=== PATIENT | female | born 1955 | race Caucasian/White ===

== ENCOUNTER 2024-09-06 19:17 | Emergency (ER) | payer OTHER, MEDICARE, SELFPAY ==
[2024-09-06 19:20] VITALS: BP 174/88
[2024-09-06 19:45] LABS: % Basophils 0.6 % (0-2); % Eosinophils 3.7 % (0-6); % Immature Granulocytes 0.8 % (0-0.5); % Lymphocytes 14.5 % (20.5-51.1); % Monocytes 8.1 % (1.7-9.3); % Neutrophils 72.3 % (42.2-75.2); Absolute Basophils 0.1 10^3/uL (0-0.2); Absolute Eosinophils 0.4 10^3/uL (0-0.7); Absolute Immature Granulocytes 0.1 10^3/uL (0-0.05); Absolute Lymphocytes 1.5 10^3/uL (1.2-3.4); Absolute Monocytes 0.9 10^3/uL (0.1-0.6); Absolute Neutrophils 7.6 10^3/uL (1.4-6.5); Hematocrit 40.3 % (37.0-47.0); Hemoglobin 13.3 g/dL (12.0-16.0); Mean Corpuscular Volume 81.7 fL (81.0-99.0); Mean Platelet Volume 10.5 fL (7.4-10.4); Nucleated Red Blood Cells % 0 %; Platelet Count 220 10^3/uL (130-400); Red Blood Cell Count 4.93 10^6/uL (4.20-5.40); Red Cell Dist. Width 13.8 % (11.5-14.5); White Blood Cell Count 10.5 10^3/uL (4.8-10.8)
[2024-09-06 20:06] LABS: Troponin I < 0.012 ng/ml
[2024-09-06 20:09] LABS: ALT (SGPT) 20 U/L (0-35); AST (SGOT) 20 U/L (14-36); Albumin 4.4 g/dl (3.5-5.0); Alkaline Phosphatase 132 U/L (38-126); Blood Urea Nitrogen 23 mg/dl (7-17); Calcium 9.7 mg/dl (8.4-10.2); Carbon Dioxide 25 mmol/L (22-30); Chloride 100 mmol/L (98-107); Glucose 115 mg/dl (70-99); Potassium 4.2 mmol/L (3.5-5.1); Sodium 136 mmol/L (135-145); Total Bilirubin 0.8 mg/dl (0.2-1.3); Total Protein 6.9 g/dl (6.3-8.2); eGFR > 60.00
--- NOTE | 2024-09-06 20:19 | ED.GENMED ---
History of Present Illness
<Aubree Parra PA-C - Last Filed: 09/07/24 11:01>
General
Chief Complaint: Chest Pain
Source: patient
Exam Limitations: none
Time Seen by Provider: 09/06/24 20:17
Nursing documentation reviewed up to this point in time: agreed with
History of Present Illness
History of Present Illness:
This is a 68-year-old female with a past medical history of hypertension who presents emergency department today with concerns of chest pain starting around 30 minutes prior to arrival to emergency department. Patient states that she felt it in the
right side of her chest and states that she was just sitting on the couch when this started. Patient states that she has had pain similar in the past that did subside on its own. She also reports that she started to get associated right sided jaw
pain and right sided headache associated with this as well. The chest pain is since resolved but patient does note dull ache in her right jaw. She denies any visual changes, any eye pain. Patient also has associated nausea during this episode.
It lasted around 45 minutes and has since subsided. She denies shortness of breath. She had no history of cardiac disease. However she does state that she has a history of early cardiac disease in her father who at 58 due to heart disease.
She has no associated dizziness or lightheadedness. She does not use tobacco products or drink alcohol. She has not had any syncopal episodes. Currently she feels well but states that the pain will come and go. Does not currently have a
audiology director.
Review of Systems
<Aubree Parra PA-C - Last Filed: 09/07/24 11:01>
Review of Systems
All Other Systems: ROS reviewed and negative except as documented in HPI and ROS
Phy Exam
<Aubree Parra PA-C - Last Filed: 09/07/24 11:01>
Physical Exam
Physical Exam:
General: Patient is well appearing and in no acute distress; non-toxic
Skin: Warm and dry, no rashes or lesions
Head: Normocephalic, atraumatic. No right sided temporal artery tenderness. TMJ joints intact bilaterally.
Eyes: Sclera non-icteric. EOMs intact.
Cardiac: Regular rate and rhythm, no murmurs. No tenderness to palpation of the external chest wall.
Peripheral Vascular: No lower extremity swelling or edema
Pulm: Normal respiratory effort, no wheezes, rales, or rhonchi
Abdomen: No abdominal tenderness to palpation
Neuro: CN II-XII intact, no focal neurologic deficits.
Psychiatric: Appropriate mood and affect.
Scores
<ELDER Elias Filed: 09/07/24 11:01>
Heart Score for Chest Pain Patients
STEMI patient?: No
History: Slightly or Non-Suspicious
ECG: Normal
Age: >/= 65 years
Risk Factors: 1 or 2 Risk Factors
Troponin: </= Normal Limit
Heart Score for Chest Pain Patients: 3
Heart Score Risk: 2.5% MACE over next 6 weeks
Course
<ELDER Elias Filed: 09/07/24 11:01>
Orders/Labs/Results
Orders:
Orders
09/06/24 19:18
Electrocardiogram (*1) Urgent
Reason for Study: Chest Pain
EKG- Treatment ONCE
09/06/24 19:28
CMP [Comprehensive Metabolic Panel] Urgent
Complete Blood Count/With Diff Urgent
Troponin I Urgent
09/06/24 20:51
CR Chest - 2 Views Urgent
Comment:
Reason For Exam: right sided CP
09/06/24 20:54
CRP [C-Reactive Protein] Urgent
ESR [Erythrocyte Sed Rate] Urgent
09/06/24 22:20
Electrocardiogram (*1) Urgent
Reason for Study: Chest Pain
09/06/24 22:32
Troponin I Urgent
Abnormal Lab Results
09/06/24 09/06/24
19:28 20:54
MPV 10.5 H fL
(7.4-10.4)
Abs Immat Gran (auto) 0.1 H 10^3/uL
(0-0.05)
Absolute Neuts (auto) 7.6 H 10^3/uL
(1.4-6.5)
Absolute Monos (auto) 0.9 H 10^3/uL
(0.1-0.6)
Immature Gran % 0.8 H %
(0-0.5)
Lymphocytes % 14.5 L %
(20.5-51.1)
BUN 23 H mg/dl
(7-17)
Glucose 115 H mg/dl
(70-99)
Alkaline Phosphatase 132 H U/L
(38-126)
C-Reactive Protein 19.90 H mg/L
(0.0-10.00)
09/06/24 19:28
09/06/24 19:28
Vital Signs
Initial and Last Documented VS:
Initial Vital Signs
Temp Pulse Resp BP Pulse Ox
98.6 F 97 18 174/88 98
09/06/24 19:20 09/06/24 19:20 09/06/24 19:20 09/06/24 19:20 09/06/24 19:20
Last Documented Vital Signs
Temp Pulse Resp BP Pulse Ox
98.6 F 89 21 164/94 92
09/06/24 19:20 09/06/24 23:30 09/06/24 23:30 09/06/24 23:00 09/06/24 23:30
<Mahin Evans MD - Last Filed: 09/06/24 23:38>
Orders/Labs/Results
Orders:
Orders
09/06/24 19:18
Electrocardiogram (*1) Urgent
Reason for Study: Chest Pain
EKG- Treatment ONCE
09/06/24 19:28
CMP [Comprehensive Metabolic Panel] Urgent
Complete Blood Count/With Diff Urgent
Troponin I Urgent
09/06/24 20:51
CR Chest - 2 Views Urgent
Comment:
Reason For Exam: right sided CP
09/06/24 20:54
CRP [C-Reactive Protein] Urgent
ESR [Erythrocyte Sed Rate] Urgent
09/06/24 22:20
Electrocardiogram (*1) Urgent
Reason for Study: Chest Pain
09/06/24 22:32
Troponin I Urgent
Abnormal Lab Results
09/06/24 09/06/24
19:28 20:54
MPV 10.5 H fL
(7.4-10.4)
Abs Immat Gran (auto) 0.1 H 10^3/uL
(0-0.05)
Absolute Neuts (auto) 7.6 H 10^3/uL
(1.4-6.5)
Absolute Monos (auto) 0.9 H 10^3/uL
(0.1-0.6)
Immature Gran % 0.8 H %
(0-0.5)
Lymphocytes % 14.5 L %
(20.5-51.1)
BUN 23 H mg/dl
(7-17)
Glucose 115 H mg/dl
(70-99)
Alkaline Phosphatase 132 H U/L
(38-126)
C-Reactive Protein 19.90 H mg/L
(0.0-10.00)
09/06/24 19:28
09/06/24 19:28
Vital Signs
Initial and Last Documented VS:
Initial Vital Signs
Temp Pulse Resp BP Pulse Ox
98.6 F 97 18 174/88 98
09/06/24 19:20 09/06/24 19:20 09/06/24 19:20 09/06/24 19:20 09/06/24 19:20
Last Documented Vital Signs
Temp Pulse Resp BP Pulse Ox
98.6 F 89 21 164/94 92
09/06/24 19:20 09/06/24 23:30 09/06/24 23:30 09/06/24 23:00 09/06/24 23:30
<Aubree Parra PA-C - Last Filed: 09/07/24 11:01>
MDM/Problems Addressed
Differential Diagnosis Includes:
Differentials include ACS, costochondritis, pneumothorax, pneumonia, GERD, GCA, tension headache
MDM/Problems Addressed:
68-year-old female with past medical history of hypertension presents emergency department today with concerns of right-sided chest pain. This lasted around 45 minutes and was associated with nausea and right upper arm pain as well as a sensation
of feeling flushed. She has no personal history of cardiac disease, does not currently have a audiology director. She also had transient right-sided temporal headache. She no longer has chest pain but does have right-sided jaw pain. She states that the
pain is not worse with eating. On physical exam she is well-appearing in no acute distress heart is regular rate and rhythm she has no reproducible type chest pain she has no temporal artery tenderness no jaw tenderness to palpation TMJ joints
intact bilaterally. Initial EKG shows normal sinus rhythm with rate of 96 with no ischemic changes repeat EKG shows normal sinus rhythm with rate of 84 largely unchanged from prior. Initial troponin undetectable awaiting repeat troponin.
CRP 19.90 with ESR 11, in light of no active visual changes, no current headache, jaw pain without jaw claudication doubtful of GCA.
Chronic conditions affecting care:
HTN
<Aubree Parra PA-C - Last Filed: 09/07/24 11:01>
*Pulse Oximetry
Patient hypoxic: no
*Critical Care Note
Total Time (30-74mins, 75-104mins- exclusive of procedures): Not Applicable
Data Reviewed
Review of Other/Old Records Reveals: Records (Reviewed ER physician documentation from 11/25 patient seen for head injury following a fall had negative CT head and cervical spine imaging) and Discharge Summary (no discharge summaries to review)
Source: patient and records
<Aubree Parra PA-C - Last Filed: 09/07/24 11:01>
Patient Management
Social determinants of health affecting care: Strong social support
<Aubree Parra PA-C - Last Filed: 09/07/24 11:01>
Update Note
Update Note:
11:10 pm-- case signed out to Hayley Carrillo DIRECTOR GIFT to follow up on repeat troponin
ED Attending Note
<Aubree Parra PA-C - Last Filed: 09/07/24 11:01>
-
Portions of this chart may have been created with voice recognition software.� Occasional wrong word or��sound alike� substitutions may have occurred due to the inherent limitations of voice recognition software.
<Mahin Evans MD - Last Filed: 09/06/24 23:38>
ED Attending Note
Patient seen and examined by attending physician: Yes
ED Attending Note:
I have seen and evaluated the patient with a [id number] encounter. I have spoken to the advance practicer provider and involved in the medical history, the physical exam, medical decision making.
Evaluation and management service: agree unless noted differently below.
Results interpretation: agree unless noted differently below.
Focused HPI: 68-year-old female with history as noted presents for evaluation after an episode of chest pain. Patient reports that she was driving and had sudden onset of pain in the chest radiating towards the right arm, right side of her
neck/jaw. She says she had associated clamminess/sweatiness. Denies any associated shortness of breath. Denies any lightheadedness or dizziness. She denies any vomiting but did have some mild nausea. She says that symptoms lasted for about an
hour and have since completely resolved. She denies having had similar symptoms in the past. She denies any known cardiac history but does have a family history of heart disease.
Physical exam: Awake alert no distress. Hypertensive otherwise normal vitals. No cardiac rubs gallops or murmurs. Lungs clear to auscultation bilaterally. Extremities are warm and well-perfused with no significant edema.
Medical Decision Makin-year-old female presents for evaluation after an episode of chest pain rating to the neck, jaw, right arm associate with clamminess and nausea. Nonexertional. Symptoms have completely resolved. Vitals and exam as
above. EKG shows sinus rhythm no acute ischemia. No change on serial EKGs. Labs sent off including a CBC and a CMP which showed no clinically significant abnormalities. Troponins undetectable x 2. Chest x-ray reviewed by me shows no acute
disease. Stable for discharge but given her history she should have very close cardiology follow-up�will refer of ER chest pain hotline. I spoke to the patient about avoiding exertion and returning with any recurrence of pain. She indicated
understanding. All questions answered.
Discharge Plan
Departure
Patient Disposition: Home (Routine Discharge)
Patient with high blood pressure during this ER visit?: Yes
Condition: Good
Discharge Problem:
Chest pain, Jaw pain
Instructions: Chest Pain CBC Follow Up, BLOOD PRESSURE
Referrals:
Jose Maria Escudero MD [Active] - Call in 1-3 days for appt
Moustapha Garsia MD [Family Provider] -
Activity Restrictions/Additional Instructions:
Your repeat troponin test was undetectable. Your repeat EKG remained normal sinus rhythm with no concerning ischemic changes.
You should receive a call to schedule an appointment with a audiology director within the next few days. If you do not receive a call, please call the attached number to schedule an appointment.
Please follow-up with your primary care provider.
PLEASE RETURN EMERGENCY DEPARTMENT SHOULD YOU DEVELOP ANY ACUTE WORSENING OF YOUR SYMPTOMS, RETURN OF YOUR CHEST PAIN, FAINTING SPELLS, DIZZINESS, LIGHTHEADEDNESS, FEVERS OR CHILLS, WEAKNESS, DIFFICULTY SPEAKING, CONFUSION, OR ANY OTHER SIGNS OR
SYMPTOMS WORRISOME TO YOU.
Interventions
Interventions:
*Risk Screen - Suicide Last Done: 09/06/24 19:20
*General Assessment Last Done: 09/06/24 19:20
*Neglect/Abuse Screening Last Done: 09/06/24 19:20
*ED COVID-19 Vaccine History Last Done: 09/06/24 20:32
*Nursing Disposition Last Done: 09/06/24 23:49
ED- Cardiac Assessment Last Done: 09/06/24 20:32
Discharge Date and Time
Discharge Date/Time: 09/06/24 23:52
Print Language: CZECH
[2024-09-06 20:24] VITALS: BP 177/90
[2024-09-06 20:25] VITALS: BMI 45.9
[2024-09-06 21:00] VITALS: BP 157/76
[2024-09-06 21:26] LABS: Erythrocyte Sed Rate 11 mm/hour (0-20)
[2024-09-06 22:06] VITALS: BP 167/72
[2024-09-06 23:00] VITALS: BP 164/94
[2024-09-06 23:11] LABS: Troponin I < 0.012 ng/ml
== END 2024-09-06 23:52 | disposition home or self-care (01) ==
LOC: EMR 19:17
PROVIDERS: Emergency Medicine; Physician Assistant; EMERGENCY PHYSICIAN Emergency Medicine; FAMILY PHYSICIAN Internal Medicine
DX: R07.9 Chest pain, unspecified (principal); R68.84 Jaw pain; I10 Essential (primary) hypertension
CPT/HCPCS: 99285; 71046; 80053; 84484; 85025; 85652; 86140; 93005